=== PATIENT | male | born 2000 | race Caucasian/White ===

== ENCOUNTER 2019-11-29 19:38 | Emergency (ER) | payer OTHER, SELFPAY ==
[2019-11-29 19:44] VITALS: BP 151/96; PULSE 101; RESP 18; TEMP 36.7; O2SAT 98; BMI 22.3
[2019-11-29 19:59] VITALS: BP 151/96; PULSE 101; RESP 18; TEMP 36.7; O2SAT 98
== END 2019-11-29 20:00 | disposition home or self-care (01) ==
LOC: UTC 19:44
PROVIDERS: Emergency Provider Physician Assistant
DX: S61.211D Laceration without foreign body of left index finger without damage to nail, subsequent encounter (principal); S61.210D Laceration without foreign body of right index finger without damage to nail, subsequent encounter